=== PATIENT | female | born 1995 | race Caucasian/White ===

== ENCOUNTER 2017-11-20 05:27 | Inpatient (IN) ==
[~2017-11-20 05:27] MED LIST: CeFAZolin Premix DUPLEX 2,000 MG/50 ML BAG IVPB ONE; Famotidine 20 MG/2 ML VIAL IVP ONE; Famotidine 20 MG/2 ML VIAL IVP PRN; Metoclopramide 10 MG/2 ML VIAL IVP ONE; Naloxone 0.4 MG/ML INJ IVP PRN; Ondansetron 4 MG/2 ML VIAL IVP PRN; Oxytocin 20 units/ LR 1000 mL 20 UNIT/1,000 ML BAG IVC ONE; Ringers Solution, Lactated 1,000 ML IVC ONE
[2017-11-20] MEDS ORDERED: Ringers Solution, Lactated 1,000 ML ONE ×2 (05:28→06:26)
[2017-11-20] MEDS ORDERED: Ringers Solution, Lactated 1,000 ML IVC SCH (05:30)
[2017-11-20] MEDS ORDERED: Oxytocin 20 units/ LR 1000 mL 20 UNIT/1,000 ML BAG IVC SCH ×2 (05:30→09:27)
[2017-11-20] MEDS ORDERED: Morphine Sulfate/PF 5mg/10mL Vial ONE (05:35)
[2017-11-20] MEDS ORDERED: *HR* FentaNYL (PF) 100 MCG/2 ML VIAL ONE (05:35)
[2017-11-20] MEDS ORDERED: *HR* Oxytocin 10 UNIT/ML VIAL IM ONE ×2 (05:36→06:37)
--- NOTE | 2017-11-20 05:38 | OB/GYN History & Physical ---
Date of Encounter: 11/20/17 Time of Encounter: 05:15 Assessment and Plan (1) 36 weeks gestation of Current visit: Yes Status: Acute Admit for repeat Dr Young notified (2) uterine contractions in third trimester, antepartum Current visit: Yes Status: Acute History of Present Illness Chief complaint: Contractions HPI: Ms. Luna is a 22 year old at 36 weeks and 3 days gestation that arrives to triage with complaints of contractions every few minutes and pink discharge. She states her pain is really bad and is physically upset with the contractions. She has had one previous LTCS. She is seen in the office by Dr Lloyd. There have been no complications with this . She states positive movement. She denies headache, vision changes, and epigastric pain. She c/o vaginal bleeding, leaking, and pressure. Her labs are as follows: GBS negative Normal 1 hour GTT HIV NR RPR Negative Rubella positive Varicella positive Blood type A+ / antibody negative Hep B Nonreactive GC/Cl negative Obstetrical History - Pregnancies : 2 Para: 1 Term: 1 : 0 Ab's: 0 Livin Review of System OB All systems PM: reviewed and no additional remarkable complaints except as stated Exam - Constitutional Constitutional: well developed, well nourished, average body habitus, mild distress - HEENT HEENT: Normocephaly, Mucus Membranes Moist - Lungs Respiratory exam: CTAB - Cardiovascular Cardiovascular exam: RRR, +S1, +S2 - Abdomen Abdomen: Present: bowel sounds normal, gravid, non tender - Extremities Extremities exam: normal capillary refill Deep Tendon Reflex Grade: 2+ Normal - Vulva Vulva: bilateral: normal - Vagina Vagina: Present: normal moisture - Cervix Dilation: 8 Effacement: 100 Station: +1 - Uterus Uterus exam: Present: normal size, normal contour. Absent: tender - Anus/Rectum Anus/Rectum: Present: normal perianal skin Results All other labs normal. - VTE Reasons for not Prescribing Prophylaxis: Treatment not Indicated - Low risk for VTE
[2017-11-20 05:48] LABS: Basophils % 0.1 %; Hematocrit 29.4 % (35.3-44.9); Hemoglobin 9.5 g/dL (11.5-15.4); Lymphocytes % 4.7 %; Mean Corpuscular HGB Conc 32.3 g/dL (31.6-35.5); Mean Corpuscular Hemoglobin 24.2 pg (28.0-33.3); Mean Platelet Volume 11.3 fL (9.4-12.4); Monocytes % 4.7 %; Neutrophils # 19.7 K/mcL (1.6-8.9); Platelet Count 205 K/mcL (140-400); Red Blood Count 3.92 M/mcL (3.82-4.97); Red Cell Distribution Width 14.2 % (11.5-14.5); Segmented Neutrophils % 89.5 %
[2017-11-20] MEDS ORDERED: Lidocaine/EPI 1:100k 1% 30 ML VIAL ONE (05:56)
--- NOTE | 2017-11-20 06:03 | Anesthesia Evaluation PreOp ---
Date of Encounter: 11/20/17 Time of Encounter: 05:35 - Past History Planned Operation: or Csection Cardiac History: Denies any Significant Hx Pulmonary History: Denies Any Significant HX CARTON LINER History: Denies Any Significant HX Other Medical History: Denies Any Significant HX : Yes (, 36 weeks) Alcohol Use: none Drug use: none - Meds/Allergy Pre-op Review Medications Reviewed: Yes Allergies Reviewed: Yes Beta Blockers on Current Med List: No Anesthesia Results - Labs 11/20/17 05:35 Anesthesia Exam bp 188/96 hr 120 rr 20 spo2 96 NPO (# of Hours): greater than 8 hours Pain Scale: 10 Pain Scale Used: Numeric (1 - 10) - HEENT Pupil (Motor): Pupils equal Mallampati: II Teeth: Normal Oral Opening: Greater than 3 - CARTON LINER LOC: Oriented - Cardiac Rhythm: Regular Murmur: None - Pulmonary Respiratory Effort: Symmetrical Anesthesia Assess/Plan ASA Score: 2, E Modified [place] Scale for Level of Consciousness: Anixous, agitated or restless Anesthetic Plan: Regional Monitoring Plan: Standard Monitors Recovery Plan: PACU
--- NOTE | 2017-11-20 07:13 | OB/GYN Procedure Note ---
Delivery - Delivery Date: 11/20/17 Provider: Jillian Young Intrapartum events: precipitous labor- <3hr Delivery induction: none Delivery monitor: external FHT, external uterine Anesthesia: local, intravenous Estimated Blood Loss: 200 - Infant (s) Infant A Infant Delivery Date: 11/20/17 Delivery Time: 06:36 Presentation: vertex Position: OA Route of delivery: (her grandmother being a) Gender: Female Viability: Viable Pounds: 6 Ounces: 2 at 1 minute: 8 at 5 mins: 9 Shoulder Dystocia: not encountered Placenta: spontaneous (With trailing membranes), uterine exploration (Anterior uterine wall intact) Cord: 3 umbilical vessels - Repair Episiotomy: none Laceration Description: Periurethral, Perineal - 2nd Degree - Complications Delivery complications: none Delivery comments: The patient presented in active labor, completely dilated with ruptured membranes. She gave informed consent for a vaginal after all along with a repeat section. She was taken to the operating room for a double set up. Anesthesia was present. She was complete and pushing with a spontaneous vaginal delivery in the OA position of a vigorous female weighing 6 lbs. 2 oz. with Apgars of 8 at 1 minute and 9 at 5 minutes. The was placed on the maternal abdomen and the cord was clamped and cut after pulsations ceased. Placenta was delivered spontaneous and intact with trailing membranes. The uterus was explored and the anterior wall was intact. There were no cervical or vaginal lacerations. Second-degree perineal laceration was injected with 1% lidocaine with epinephrine and repaired in the usual fashion. There was a left periurethral laceration which was hemostatic and not repaired. Estimated blood loss 200 mL's. Complications none. - Disposition Mom disposition: stable in LDR disposition: stable in LDR
[2017-11-20] MEDS ORDERED: Acetaminophen 325 MG TABLET PO PRN (09:27)
[2017-11-20] MEDS: *HR* HYDROcodone/Acet 5/325 mg TABLET PO PRN ×3 (11:08→20:16)
[2017-11-20] MEDS: Ibuprofen 600 MG TABLET PO SCH ×2 (13:30→20:16)
[2017-11-21] MEDS: Ibuprofen 600 MG TABLET PO SCH ×3 (02:46→17:46)
[2017-11-21] MEDS: *HR* HYDROcodone/Acet 5/325 mg TABLET PO PRN ×2 (02:47→08:29)
[2017-11-21 05:09] LABS: Basophils % 0.2 %; Eosinophils # 0.3 K/mcL (0.0-0.6); Eosinophils % 1.6 %; Hematocrit 23.5 % (35.3-44.9); Lymphocytes # 2.9 K/mcL (0.6-4.6); Lymphocytes % 18.3 %; Mean Corpuscular HGB Conc 31.5 g/dL (31.6-35.5); Mean Corpuscular Hemoglobin 24.2 pg (28.0-33.3); Mean Corpuscular Volume 76.8 fL (83.0-100.0); Mean Platelet Volume 11.7 fL (9.4-12.4); Monocytes # 1.2 K/mcL (0.0-1.3); Monocytes % 7.4 %; Neutrophils # 11.4 K/mcL (1.6-8.9); Platelet Count 175 K/mcL (140-400); Red Blood Count 3.06 M/mcL (3.82-4.97); Red Cell Distribution Width 14.4 % (11.5-14.5); Segmented Neutrophils % 71.5 %
[2017-11-21 05:13] LABS: Hemoglobin 7.4 g/dL (11.5-15.4)
[2017-11-21] MEDS: Prenatal Vit/FA 1 EACH TABLET PO SCH (08:27)
--- NOTE | 2017-11-21 09:02 | OB/GYN Progress Note ---
Date of Encounter: 11/21/17 Time of Encounter: 08:57 - Assessment and Plan (1) Vaginal after () Current Visit: Yes Status: Acute Plan: - patient is complaining of chills and fatigue. Currently afebrile. Will obtain CBC at noon to check H/H and WBC - denies heavy lochia. will check CBC - tender fundus, will continue to monitor for signs of endometritis and treat with IM Rocephin given that the pt had a manual exam following delivery - breast feeding well, lanolin prescribed - will monitor overnight. (2) 36 weeks gestation of Current Visit: Yes Status: Acute (3) anemia Current Visit: Yes Status: Acute Will recheck H/H. Will need iron supplement on discharge Subjective - Subjective Principal diagnosis: s/p vaginal delivery Interval history: Patient is a 22 y/o female now s/p vaginal delivery day 1. Patient is complaining of fatigue and chills. Patient does not feel good and is not ready to go home today. Denies fever, CAMPA, changes in vision. + void. Pain is well controlled. Denies excess lochia. Breast feeding is going well. Patient reports: appetite normal, voiding normally, pain well controlled : doing well Objective - Latest Vital Signs Latest vital signs: Vital Signs Temp Pulse Pulse Resp BP Pulse Ox 11/21/17 03:15 98 F 82 16 97/43 98 11/20/17 23:05 98.1 F 83 16 101/51 98 11/20/17 20:00 98.1 F 90 14 109/66 98 11/20/17 15:00 16 11/20/17 11:29 80 16 11/20/17 11:28 98.2 F 81 16 117/64 11/20/17 10:35 98.4 F 108 16 121/76 11/20/17 10:27 98.4 F 108 16 121/76 11/20/17 09:30 98.2 F 98 16 116/77 11/20/17 09:28 16 Intake and Output 11/20/17 11/21/17 11/21/17 23:59 07:59 15:59 Intake Total 500 / 500 500 / 500 Output Total 1300 / 1300 300 / 300 Balance -800 / -800 200 / 200 Intake: Oral 500 / 500 500 / 500 Output: Urine 1300 / 1300 300 / 300 - Exam Lungs: bilateral: normal Chest: Normal S1, Normal S2 Extremities: Present: normal Abdomen: Present: normal appearance, soft Uterus: Present: normal, tenderness (at fundus ) Uterus Position: 2 Fingers Below Umbilicus - Labs Labs: Laboratory Results - last 24 hr 11/21/17 04:35 WBC 15.9 H RBC 3.06 L Hgb 7.4 L D Hct 23.5 L MCV 76.8 L MCH 24.2 L MCHC 31.5 L RDW 14.4 Plt Count 175 MPV 11.7 Immature Gran % 1.0 Seg Neutrophils % 71.5 Lymphocytes % 18.3 Monocytes % 7.4 Eosinophils % 1.6 Basophils % 0.2 Neutrophils # 11.4 H Lymphocytes # 2.9 Monocytes # 1.2 Eosinophils # 0.3 Basophils # 0.0
[2017-11-21] MEDS ORDERED: Lanolin 28 GM TUBE TP PRN (09:06)
[2017-11-21] MEDS ORDERED: Lanolin 7 G OINT...G. TP PRN (09:30)
[2017-11-21 12:10] LABS: Hematocrit 24.9 % (35.3-44.9); Mean Corpuscular HGB Conc 32.1 g/dL (31.6-35.5); Mean Corpuscular Hemoglobin 24.6 pg (28.0-33.3); Mean Corpuscular Volume 76.6 fL (83.0-100.0); Mean Platelet Volume 11.2 fL (9.4-12.4); Platelet Count 178 K/mcL (140-400); Red Blood Count 3.25 M/mcL (3.82-4.97); Red Cell Distribution Width 14.4 % (11.5-14.5)
[2017-11-21] MEDS ORDERED: CefTRIAXone 1,000 MG VIAL IM ONE (16:11)
[2017-11-22] MEDS: Prenatal Vit/FA 1 EACH TABLET PO SCH (08:23)
[2017-11-22] MEDS: Ibuprofen 600 MG TABLET PO SCH (08:24)
[2017-11-22 08:53] VITALS: BP 104/60
--- NOTE | 2017-11-22 11:21 | Discharge Summary ---
Date of Encounter: 11/22/17 Time of Encounter: 11:18 - Discharge Diagnosis (1) anemia Priority: Secondary Status: Acute Comments: Will discharge home on iron BID (2) Vaginal after () Priority: Primary Status: Acute Comments: Meeting all PP milestones, tolerates regular diet, , pain well managed and decreased from yesterday, desires discharge. - Discharge Medications Prescriptions: Ibuprofen [Motrin] 600 mg PO Q6HR #60 tablet Breast Pump [BREAST PUMP] 1 each .ROUTE AD #1 each Docusate [Colace] 100 mg PO BID #60 capsule Ferrous Sulfate 325 mg PO BIDWM #60 tablet Home Medications: Breast Pump [BREAST PUMP] 1 each .ROUTE AD #1 each 11/21/17 [Rx] Acetaminophen [Tylenol] 650 mg PO Q6HR PRN tablet 11/22/17 [Rx] Docusate [Colace] 100 mg PO BID #60 capsule 11/22/17 [Rx] Ferrous Sulfate 325 mg PO BIDWM #60 tablet 11/22/17 [Rx] Ibuprofen [Motrin] 600 mg PO Q6HR #60 tablet 11/22/17 [Rx] Lanolin [Lansinoh] 1 appl TP Q4HR PRN oint...g. 11/22/17 [Rx] Vit/FA 1 each PO DAILY tablet 11/22/17 [Rx] Allergies/Adverse Reactions: 3 Allergy/AdvReac Type Severity Reaction Status Date / Time No Known Allergies Allergy Verified 11/22/17 05:46 Data Procedures and tests throughout hospitalization: Laboratory Tests 11/20/17 11/21/17 11/21/17 05:35 04:35 11:56 WBC 21.9 H 15.9 H 13.8 H RBC 3.92 3.06 L 3.25 L Hgb 9.5 L 7.4 L D 8.0 L Hct 29.4 L 23.5 L 24.9 L MCV 75.0 L 76.8 L 76.6 L MCH 24.2 L 24.2 L 24.6 L MCHC 32.3 31.5 L 32.1 RDW 14.2 14.4 14.4 Plt Count 205 175 178 MPV 11.3 11.7 11.2 Immature Gran % 1.0 1.0 Seg Neutrophils % 89.5 71.5 Lymphocytes % 4.7 18.3 Monocytes % 4.7 7.4 Eosinophils % 0.0 1.6 Basophils % 0.1 0.2 Neutrophils # 19.7 H 11.4 H Lymphocytes # 1.0 2.9 Monocytes # 1.0 1.2 Eosinophils # 0.0 0.3 Basophils # 0.0 0.0 Labs on day of discharge: Labs from last 24 hours 11/21/17 11:56 WBC 13.8 H RBC 3.25 L Hgb 8.0 L Hct 24.9 L MCV 76.6 L MCH 24.6 L MCHC 32.1 RDW 14.4 Plt Count 178 MPV 11.2 Date of admission: 11/20/17 05:27 Primary care physician: Chari Rodriguez, Consults: 11/20/17 09:27 Consult to University Counselor [CONS] Routine Comment: Vaginal delivery, consult needed Discharging clinician: Luana Recio Anticipated date of discharge: 11/22/17 - Patient Status Disposition: Home, Self-Care Condition: Good Functional capacity at discharge: independent ambulation Overall status at discharge: patient is back to baseline - Discharge Instructions Instructions: Anemia (GEN) Follow Up With: Chari Rodriguez MD [Primary Care Provider] - - Diet and Activity Activity: resume usual activities as tolerated Diet: regular diet Hospital Course Reason for admission: active labor Delivery: () Episiotomy: none Laceration: 2nd degree Other procedures: none complications: none Discharge diagnosis: IUP at term delivered [place] baby: female Hospital course: Delivery - Delivery Date: 11/20/17 Provider: Jillian Young Intrapartum events: precipitous labor- <3hr Delivery induction: none Delivery monitor: external FHT, external uterine Anesthesia: local, intravenous Estimated Blood Loss: 200 - (s) A Delivery Date: 11/20/17 Delivery Time: 06:36 Presentation: vertex Position: OA Route of delivery: (her grandmother being a) Gender: Female Viability: Viable Pounds: 6 Ounces: 2 at 1 minute: 8 at 5 mins: 9 Shoulder Dystocia: not encountered Placenta: spontaneous (With trailing membranes), uterine exploration (Anterior uterine wall intact) Cord: 3 umbilical vessels - Repair Episiotomy: none Laceration Description: Periurethral, Perineal - 2nd Degree - Complications Delivery complications: none Delivery comments: The patient presented in active labor, completely dilated with ruptured membranes. She gave informed consent for a vaginal after all along with a repeat section. She was taken to the operating room for a double set up. Anesthesia was present. She was complete and pushing with a spontaneous vaginal delivery in the OA position of a vigorous female infant weighing 6 lbs. 2 oz. with Apgars of 8 at 1 minute and 9 at 5 minutes. The was placed on the maternal abdomen and the cord was clamped and cut after pulsations ceased. Placenta was delivered spontaneous and intact with trailing membranes. The uterus was explored and the anterior wall was intact. There were no cervical or vaginal lacerations. Second-degree perineal laceration was injected with 1% lidocaine with epinephrine and repaired in the usual fashion. There was a left periurethral laceration which was hemostatic and not repaired. Estimated blood loss 200 mL's. Complications none. - Disposition Mom disposition: stable in PP and appropriate for discharge. Time Attestation: Total time spent providing and/or coordinating discharge services: Time Spent: Less than 30 minutes Exam - Constitutional Vitals: Temp Pulse Resp BP Pulse Ox 98.7 F 98 16 104/60 98 11/22/17 08:00 11/22/17 08:00 11/22/17 08:00 11/22/17 08:00 11/22/17 08:00 General appearance IM: A&O X 3 - Respiratory Respiratory exam: Present: CTAB - Cardiovascular Cardiovascular exam IM: Present: RRR - GI/Abdominal GI/Abdominal exam IM: normal bowel sounds, soft - Uterine Tone: Firm Uterus Position: At Umbilicus - Extremities Exam Extremities exam IM: Present: normal capillary refill, normal inspection - Neurological Exam Neurological exam: normal gait, oriented X3 - Psychiatric Additional comments: reports good mood.
== END 2017-11-22 13:00 | disposition home or self-care (01) | DRG 560 ==
LOC: 1NENULAB → 1NENUOBS 09:26
PROVIDERS: ADMIT Obstetrics & Gynecology; ATTEND Obstetrics & Gynecology

== ENCOUNTER 2019-11-17 20:12 | Inpatient (IN) ==
[2019-11-17 19:33] LABS: Basophils # 0.1 K/mcL (0.0-0.2); Basophils % 0.3 %; Eosinophils # 0.1 K/mcL (0.0-0.6); Eosinophils % 0.5 %; Hematocrit 32.4 % (35.3-44.9); Hemoglobin 10.2 g/dL (11.5-15.4); Immature Granulocytes % 1.2 % (0-4); Lymphocytes # 2.3 K/mcL (0.6-4.6); Lymphocytes % 9.8 %; Mean Corpuscular HGB Conc 31.5 g/dL (31.6-35.5); Monocytes # 1.1 K/mcL (0.0-1.3); Monocytes % 4.6 %; Segmented Neutrophils % 83.6 %
[2019-11-17 19:34] LABS: Mean Corpuscular Hemoglobin 24.1 pg (28.0-33.3); Mean Corpuscular Volume 76.4 fL (83.0-100.0); Mean Platelet Volume 10.5 fL (9.4-12.4); Platelet Count 328 K/mcL (140-400); Red Blood Count 4.24 M/mcL (3.82-4.97); Red Cell Distribution Width 14.2 % (11.5-14.5); White Blood Count 23.9 K/mcL (4.3-11.1)
[~2019-11-17 20:12] MED LIST changes: -CeFAZolin Premix DUPLEX 2,000 MG/50 ML BAG IVPB ONE; -Famotidine 20 MG/2 ML VIAL IVP ONE; -Metoclopramide 10 MG/2 ML VIAL IVP ONE; +Metoclopramide 10 MG/2 ML VIAL IVP PRN; -Oxytocin 20 units/ LR 1000 mL 20 UNIT/1,000 ML BAG IVC ONE; -Ringers Solution, Lactated 1,000 ML IVC ONE; +Ringers Solution, Lactated 1,000 ML IVC SCH
[2019-11-17] MEDS ORDERED: Benzocaine/Menthol 56 GM AEROSOL SPRAY TP PRN (21:34)
[2019-11-17] MEDS ORDERED: Oxytocin 20 units/ LR 1000 mL 20 UNIT/1,000 ML BAG IVC SCH (21:34)
[2019-11-17] MEDS ORDERED: Lanolin 7 G OINT...G. TP PRN (21:34)
[2019-11-17] MEDS: Ibuprofen 600 MG TABLET PO PRN (22:25)
[2019-11-18] MEDS: Acetaminophen 325 MG TABLET PO PRN ×3 (03:09→21:18)
[2019-11-18] MEDS: Prenatal Vit/FA 1 EACH TABLET PO SCH (07:30)
[2019-11-18] MEDS: Ibuprofen 600 MG TABLET PO PRN ×2 (07:30→14:19)
[2019-11-18 08:10] LABS: Basophils % 0.1 %; Eosinophils # 0.1 K/mcL (0.0-0.6); Eosinophils % 0.8 %; Hematocrit 27.1 % (35.3-44.9); Immature Granulocytes % 0.8 % (0-4); Lymphocytes # 1.9 K/mcL (0.6-4.6); Lymphocytes % 13.3 %; Mean Corpuscular HGB Conc 31.4 g/dL (31.6-35.5); Mean Corpuscular Hemoglobin 23.6 pg (28.0-33.3); Mean Corpuscular Volume 75.3 fL (83.0-100.0); Mean Platelet Volume 10.7 fL (9.4-12.4); Monocytes # 1.2 K/mcL (0.0-1.3); Monocytes % 8.2 %; Neutrophils # 10.9 K/mcL (1.6-8.9); Platelet Count 237 K/mcL (140-400); Red Cell Distribution Width 14.1 % (11.5-14.5); Segmented Neutrophils % 76.8 %; White Blood Count 14.2 K/mcL (4.3-11.1)
[2019-11-18 08:29] LABS: Hemoglobin 8.5 g/dL (11.5-15.4)
[2019-11-19] MEDS: Ibuprofen 600 MG TABLET PO PRN (05:32)
[2019-11-19 08:12] VITALS: BP 101/51
[2019-11-19] MEDS: Prenatal Vit/FA 1 EACH TABLET PO SCH (08:21)
== END 2019-11-19 11:00 | disposition home or self-care (01) | DRG 560 ==
LOC: 1NENULAB → 1NENUOBS 21:32
PROVIDERS: ADMIT Obstetrics & Gynecology; ATTEND Obstetrics & Gynecology